=== PATIENT | male | born 1965 | race Caucasian/White ===

== ENCOUNTER 2016-12-03 11:54 | Outpatient (CLI) | payer OTHER ==
[2016-12-03 12:26] LABS: #Basophils 0.1 thou/uL (0.0-0.2); #Eosinphils 0.2 thou/uL (0.0-0.7); #Lymphocytes 1.9 thou/uL (1.20-3.40); #Neutrophils 4.6 thou/uL (1.40-6.50); %Basophils 1.2 % (0.0-1.0); %Eosinophils 2.2 % (0.0-10.0); %Lymphocytes 24.4 % (21.0-51.0); %Monocytes 13.3 % (0.0-10.0); Hemoglobin 13.9 g/dL (14.0-18.0); Mean Corpuscular HGB CONC 33.8 g/dL (32.0-36.0); Mean Corpuscular Hemoglobin 32.1 pg (27.0-31.0); Mean Corpuscular Volume 94.7 fl (80.0-94.0); Mean Platelet Volume 7.2 fL (7.4-10.4); Platelet Count 211 thou/uL (130-400); RBC Distribution Width 11.7 % (11.5-14.5); Red Blood Cell (RBC) Count 4.32 mill/uL (4.70-6.10); White Blood Cell (WBC) Count 7.8 thou/uL (4.8-10.8)
[2016-12-03 12:30] LABS: ALT (SGPT) 66 U/L (0-55); AST (SGOT) 41 U/L (5-34); Albumin 4.5 g/dL (3.5-5.0); Alkaline Phosphatase 76 U/L (40-150); Anion Gap 11 mmol/L (10-20); BUN (Urea Nitrogen) 11 mg/dL (8.4-25.7); Bilirubin, Total 0.8 mg/dL (0.2-1.2); Calc. Creatinine Clearance 0 mL/min (70-130); Calcium 9.2 mg/dL (7.8-10.44); Carbon Dioxide 31 mmol/L (22-29); Cardiac Risk 5.6 (Less than 4.5); Chloride 96 mmol/L (98-107); Cholesterol 240 mg/dL (< 200 Desired); Estimated GFR-MDRD 87; Glucose 101 mg/dL (70-105); HDL Cholesterol 43 mg/dL (>60 Neg Risk); LDL Cholesterol, Calculated 162 mg/dL; Potassium 4.3 mmol/L (3.5-5.1); Protein, Total 7.5 g/dL (6.0-8.3); Sodium 134 mmol/L (136-145); Triglycerides 175 mg/dL (Less than 150)
[2016-12-03 12:33] LABS: Troponin I Less than 0.010 ng/mL (< 0.028)
[2016-12-03 12:46] LABS: Free T4 (Free Thyroxine) 0.78 ng/dL (0.70-1.48); Thyroid Stimulating Hormone 3.6066 uIU/mL (0.35-4.94)
[2016-12-04 11:06] LABS: Digoxin 0.47 ng/mL (0.8-2.0)
== END 2016-12-03 11:55 | disposition home or self-care (01) ==
LOC: MADLABBHPM 11:54
PROVIDERS: ATTEND Family Medicine
DX: I10 Essential (primary) hypertension (principal); R07.89 Other chest pain; E03.9 Hypothyroidism, unspecified; Z79.899 Other long term (current) drug therapy
CPT/HCPCS: 36415; 80053; 80061; 80162; 82553; 84439; 84443; 84484; 85025

== ENCOUNTER 2017-02-23 09:09 | Emergency (ER) | payer OTHER ==
[2017-02-23] MEDS ORDERED: Colchicine 0.6 MG TAB ONE (09:57)
[2017-02-23 10:19] LABS: #Basophils 0.1 thou/uL (0.0-0.2); #Eosinphils 0.3 thou/uL (0.0-0.7); #Lymphocytes 2.5 thou/uL (1.20-3.40); #Monocytes 0.7 thou/uL (0.11-0.59); #Neutrophils 3.6 thou/uL (1.40-6.50); %Eosinophils 3.6 % (0.0-10.0); %Lymphocytes 35.2 % (21.0-51.0); %Monocytes 9.8 % (0.0-10.0); %Neutrophils 50.4 % (42.0-75.0); Hemoglobin 13.2 g/dL (14.0-18.0); Mean Corpuscular Hemoglobin 31.3 pg (27.0-31.0); Mean Platelet Volume 7.4 fL (7.4-10.4); Platelet Count 194 thou/uL (130-400); RBC Distribution Width 11.6 % (11.5-14.5); Red Blood Cell (RBC) Count 4.23 mill/uL (4.70-6.10); White Blood Cell (WBC) Count 7.2 thou/uL (4.8-10.8)
[2017-02-23 10:30] LABS: Anion Gap 9 mmol/L (10-20); BUN (Urea Nitrogen) 12 mg/dL (8.4-25.7); Calc. Creatinine Clearance 0 mL/min (70-130); Calcium 8.8 mg/dL (7.8-10.44); Carbon Dioxide 28 mmol/L (22-29); Chloride 107 mmol/L (98-107); Estimated GFR-MDRD 90; Glucose 106 mg/dL (70-105); Potassium 4.7 mmol/L (3.5-5.1); Sodium 139 mmol/L (136-145); Uric Acid 4.4 mg/dL (3.5-7.2)
[2017-02-23] MEDS ORDERED: Ibuprofen 400 MG TAB ONE (11:23)
--- NOTE | 2017-02-23 12:13 | RAD ---
LEFT FOOT HISTORY: Pain and swelling. TECHNIQUE: Three views obtained. FINDINGS: Mild degenerative change at the tibiotalar joint. Degenerative change also seen in the intertarsal joints, especially prominent at the talonavicular and at the calcaneal cuboid joint. Mild DJD at th e tarsometatarsal joints. Moderate degenerative change at the first MTP joint with joint narrowing and hypertrophic spurring. Mild hallux valgus. Evidence of an old healed fracture involving the proximal phalanx of the third toe. IMPRESSION: Degenerative changes and chronic changes of the left foot, as described above. POS: [facility]
== END 2017-02-23 11:30 | disposition home or self-care (01) ==
LOC: MADERS 09:09
DX: M19.072 Primary osteoarthritis, left ankle and foot (principal); E03.9 Hypothyroidism, unspecified; I10 Essential (primary) hypertension; D64.9 Anemia, unspecified; E78.5 Hyperlipidemia, unspecified; I48.91 Unspecified atrial fibrillation
CPT/HCPCS: 36415; 80048; 84550; 85025; 85652

== ENCOUNTER 2018-05-13 08:40 | Outpatient (CLI) | payer BC ==
--- NOTE | 2018-05-13 10:42 | ULT ---
ULTRASOUND ABDOMEN LIMITED: (RIGHT UPPER QUADRANT) DATE: 05-13-18 HISTORY: 52-year-old male with elevated liver enzymes. FINDINGS: Because of very large body habitus and large amount of bowel gas producing acoustic shadowing, much o f the intraabdominal contents is obscured. Left lobe of liver has diffusely homogeneously increased e chogenicity, consistent with fatty liver. The right lobe of the liver is not visible at all. Most of the pancreas is obscured by shadowing from bowel gas. Only the fundus of the gallbladder is visible, not the body or neck. No gallstone identified at the fundus. No gallbladder wall thickening at the fu ndus. Common duct not identified with certainty. No hydronephrosis of right kidney. IMPRESSION: 1. Limited study with poor visualization of intraabdominal contents due to body habitus and bowel gas . 2. Hepatic steatosis. JEAN PIERRE Gusman POS: [facility]
== END 2018-05-13 08:41 | disposition home or self-care (01) ==
LOC: MADLAB 08:40
DX: Z12.11 Encounter for screening for malignant neoplasm of colon (principal); K30 Functional dyspepsia; K21.9 Gastro-esophageal reflux disease without esophagitis; R79.89 Other specified abnormal findings of blood chemistry; R94.5 Abnormal results of liver function studies; K76.0 Fatty (change of) liver, not elsewhere classified; Z80.0 Family history of malignant neoplasm of digestive organs; Z87.898 Personal history of other specified conditions
CPT/HCPCS: 36415; 76705; 81256

== ENCOUNTER 2018-10-23 19:55 | Emergency (ER) | payer BC ==
[2018-10-23] MEDS ORDERED: Acetaminophen 500 MG TAB ONE (20:41)
--- NOTE | 2018-10-23 21:07 | RAD ---
LEFT RIBS GREATER THAN EQUAL TO 2 VIEW STANDARD 10/23/18 HISTORY: Left rib trauma. COMPARISON: None. FINDINGS: No displaced left sided rib fracture. The underlying lung parenchyma appears normal. IMPRESSION: No displaced left sided rib fracture. POS: [facility]
== END 2018-10-23 21:20 | disposition home or self-care (01) ==
LOC: MADERS 19:55
DX: S20.212A Contusion of left front wall of thorax, initial encounter (principal); I10 Essential (primary) hypertension; E03.9 Hypothyroidism, unspecified; Z79.899 Other long term (current) drug therapy; X58.XXXA Exposure to other specified factors, initial encounter

== ENCOUNTER 2018-12-02 16:22 | Outpatient (CLI) | payer BC ==
--- NOTE | 2018-12-02 17:34 | RAD ---
PA AND LATERAL OF THE CHEST: 12/02/18 INDICATION: History of left axillary nodular masses. COMPARISON: Prior chest radiograph dated 01/29/17. FINDINGS: No definite acute air space opacity, pleural effusion or pneumothorax is evident. No pleural effusion is noted. No acute osseous abnormality is noted. IMPRESSION: No acute cardiopulmonary abnormality. POS: [facility]
== END 2018-12-02 16:23 | disposition home or self-care (01) ==
LOC: MADRAD 16:22
PROVIDERS: ATTEND Family Medicine
DX: R22.32 Localized swelling, mass and lump, left upper limb (principal)
CPT/HCPCS: 71046

== ENCOUNTER 2019-01-13 21:50 | Emergency (ER) | payer BC ==
[~2019-01-13 21:50] MED LIST: Iopamidol 370 76% 100 ML VIAL ONE
[2019-01-13] MEDS ORDERED: Fentanyl 100 MCG/2 ML VIAL ONE ×2 (22:18→22:22)
[2019-01-13] MEDS ORDERED: Sodium Chloride 0.9% 1,000 ML ONE (22:22)
[2019-01-13 22:48] LABS: #Basophils 0.1 thou/uL (0.0-0.2); #Eosinphils 0.2 thou/uL (0.0-0.7); #Lymphocytes 1.7 thou/uL (1.20-3.40); #Monocytes 1.2 thou/uL (0.11-0.59); #Neutrophils 5.4 thou/uL (1.40-6.50); %Basophils 1.3 % (0.0-1.0); %Eosinophils 2.6 % (0.0-10.0); %Lymphocytes 19.7 % (21.0-51.0); %Monocytes 13.5 % (0.0-10.0); Hemoglobin 12.7 g/dL (14.0-18.0); Mean Corpuscular Hemoglobin 31.8 pg (27.0-31.0); Mean Corpuscular Volume 90.7 fL (78.0-98.0); Mean Platelet Volume 7.4 fL (7.4-10.4); Platelet Count 185 thou/uL (130-400); RBC Distribution Width 11.1 % (11.5-14.5); White Blood Cell (WBC) Count 8.5 thou/uL (4.8-10.8)
[2019-01-13 23:00] LABS: Digoxin Less than 0.15 ng/mL (0.8-2.0)
[2019-01-13 23:03] LABS: ALT (SGPT) 60 U/L (8-55); AST (SGOT) 48 U/L (5-34); Albumin 3.9 g/dL (3.5-5.0); Alkaline Phosphatase 91 U/L (40-150); Anion Gap 12 mmol/L (10-20); BUN (Urea Nitrogen) 13 mg/dL (8.4-25.7); Bilirubin, Total 0.5 mg/dL (0.2-1.2); Calc. Creatinine Clearance 0 mL/min (70-130); Calcium 8.5 mg/dL (7.8-10.44); Carbon Dioxide 26 mmol/L (22-29); Chloride 99 mmol/L (98-107); Estimated GFR-MDRD 80; Globulin 2.7 g/dL (2.4-3.5); Glucose 106 mg/dL (70-105); Lipase 24 U/L (8-78); Potassium 4.1 mmol/L (3.5-5.1); Protein, Total 6.6 g/dL (6.0-8.3); Sodium 133 mmol/L (136-145)
[2019-01-13 23:23] LABS: Bilirubin Negative (Negative); Blood, Urine Negative (Negative); Clarity Clear (Clear); Glucose, Urine (Dipstick) Negative (Negative); Leukocyte Negative (Negative); Nitrite Negative (Negative); Protein, Urine (Dipstick) Trace mg/dL (Neg-Trace)
[2019-01-14] MEDS ORDERED: Fentanyl 100 MCG/2 ML VIAL ONE (00:41)
--- NOTE | 2019-01-14 09:45 | CT ---
PRELIMINARY REPORT/[facility]/EMERGENCY AFTER HOURS PROCEDURE: EXAM: CT Abdomen and Pelvis With Contrast EXAM DATE/TIME: 01/14/2019 12:02 AM CLINICAL HISTORY: 53 years old, male; Abdominal pain; Other: All over pain; Patient HX: PT came in abd. Pain with const ipaton x4 days. HX melanoma TECHNIQUE: Imaging protocol: Axial computed tomography images of the abdomen and pelvis with intravenous contras t. Radiation optimization: All CT scans at this facility use at least one of these dose optimization techniques: automated exposure control; mA and/or kV adjustment per patient size (includes targeted e xams where dose is matched to clinical indication); or iterative reconstruction. Contrast material: I SOVUE 370; Contrast volume: 92 ml; Contrast route: LT WRIST; COMPARISON: No relevant prior studies available. FINDINGS: ABDOMEN: Liver: There is diffuse fatty infiltration of the liver. Gallbladder and bile ducts: Normal. No calcified stones. No ductal dilation. Pancreas: Normal. No ductal dilation. Spleen: No splenomegaly. Multiple ill-defined hypodensities in the spleen which are indeterminate. Adrenals: Normal. No mass. Kidneys and ureters: Normal. No hydronephrosis. Stomach and bowel: Mild diverticulosis Appendix: No evidence of appendicitis. PELVIS: Bladder: Unremarkable as visualized. Reproductive: Unremarkable as visualized. ABDOMEN and PELVIS: Intraperitoneal space: No free air. No significant fluid collection. Bones/joints: No acute fracture. No dislocation. Soft tissues: Unremarkable. Vasculature: Normal. No abdominal aortic aneurysm. Lymph nodes: Enlarged retroperitoneal lymph nodes largest in the left periaortic location measuring u p to 2.9 cm. Enlarged portal caval lymph nodes. IMPRESSION: Enlarged retroperitoneal and periportal lymph nodes of indeterminate etiology. Multiple hypodensities in the spleen. These findings could suggest lymphoma. Thank you for allowing us to participate in the care of your patient. Dictated and Authenticated by: Fco Oakley MD 01/14/2019 1:02 AM Central Time ([place] & [place]) FINAL REPORT CT ABDOMEN AND PELVIS WITH IV CONTRAST: I agree with the preliminary report given by Dr. Fco Oakley of [employer]. POS: OFF
== END 2019-01-14 01:30 | disposition home or self-care (01) ==
LOC: MADERS 21:50
DX: R59.9 Enlarged lymph nodes, unspecified (principal); R10.10 Upper abdominal pain, unspecified; E03.9 Hypothyroidism, unspecified; I10 Essential (primary) hypertension; D64.9 Anemia, unspecified; E78.5 Hyperlipidemia, unspecified; I48.91 Unspecified atrial fibrillation; Z79.899 Other long term (current) drug therapy
CPT/HCPCS: 36415; 74177; 80053; 80162; 81003; 83605; 83690; 84484; 85025; 93005; 96361; 96374; 96376; J3010; J7050; Q9967